=== PATIENT | male | born 1955 | race Caucasian/White ===

== ENCOUNTER 2022-01-03 00:53 | Emergency (ER) | payer MEDICARE ==
[2022-01-03 04:26] LABS: HEMOGLOBIN 14.2 gm/dl (14.0-17.5); RED BLOOD COUNT 4.59 M/UL (4.20-5.50); WHITE BLOOD COUNT 9.6 K/UL (4.5-11.0)
[2022-01-03 04:48] LABS: BUN/CREATININE RATIO 12 (0-10)
== END 2022-01-03 07:12 | disposition home or self-care (01) ==
LOC: ER1 00:53
PROVIDERS: Family Medicine
DX: I10 Essential (primary) hypertension (principal); Z91.013 Allergy to seafood
CPT/HCPCS: 80053; 82550; 82553; 83874; 84484; 85025; 93005; 99283